=== PATIENT | male | born 1935 | race Caucasian/White ===

== ENCOUNTER 2020-06-14 12:29 | Outpatient (CLI) | payer MEDICARE, BC ==
--- NOTE | 2020-06-14 12:53 | RAD ---
EXAM: Cervical spine: 3 views INDICATIONS: Cervical fracture COMPARISON: Cervical spine 04/11/2020 FINDINGS: Mild wedging of the C5 and C6 vertebra are stable with anterior osteophytes and degenerativ e change. Anterolisthesis at C6-7 is stable. Facet hypertrophy again noted. IMPRESSION: Stable degenerative changes
== END 2020-06-14 12:30 | disposition home or self-care (01) ==
LOC: TBSIIMAG 12:29
PROVIDERS: ATTEND Neurological Surgery
DX: S12.101A Unspecified nondisplaced fracture of second cervical vertebra, initial encounter for closed fracture (principal); M47.12 Other spondylosis with myelopathy, cervical region
CPT/HCPCS: 72040

== ENCOUNTER 2020-07-07 10:12 | Outpatient (CLI) | payer MEDICARE, BC | END 2020-07-07 10:13 | disposition home or self-care (01) | LOC: TBSIIMAG 10:12 | PROVIDERS: ATTEND Neurological Surgery | DX: S12.101A Unspecified nondisplaced fracture of second cervical vertebra, initial encounter for closed fracture (principal); M47.812 Spondylosis without myelopathy or radiculopathy, cervical region | CPT/HCPCS: 72040 ==